=== PATIENT | female | born 1995 | race Caucasian/White ===

== ENCOUNTER 2017-05-25 00:13 | Emergency (ER) | payer BC ==
[~2017-05-25] VITALS: Ht 157.5 cm; Wt 117.0 kg
[2017-05-25 00:15] VITALS: BP 137/90
[2017-05-25] MEDS ORDERED: HYDROcodone/APAP 5/325 TABLET ONE (00:50)
[2017-05-25] MEDS ORDERED: CLINDAMYCIN 300 MG CAPSULE PO ONE (01:00)
[2017-05-25] MEDS ORDERED: HYDROcodone/APAP 5/325 TABLET PO ONE (01:00)
== END 2017-05-25 01:01 | disposition home or self-care (01) ==
LOC: ED 00:55
DX: K02.9 Dental caries, unspecified (principal); E28.2 Polycystic ovarian syndrome
CPT/HCPCS: 99283